=== PATIENT | female | born 1970 ===

== ENCOUNTER → 2022-08-08 15:17 | Outpatient (CLI) | payer BC, SELFPAY ==
--- NOTE | ~2022-08-08 | CT_ITS ---
EXAMINATION: CT soft tissue neck w con DATE: 08/08/2022 15:44 INDICATION: Right neck localized swelling. TECHNIQUE: Computed tomography (CT) of the neck was performed with 75 mL Omnipaque-350 intravenous co ntrast. Automated exposure control and iterative reconstruction technique were employed. The dose-dulce gth product was 409.19 mGy-cm. COMPARISON: None FINDINGS: There is an aberrant right subclavian artery. There are no pathologically enlarged lymph no shannon. The cervical carotid arteries are normal. The paranasal sinuses are clear. The mastoid air cells are normal. There is moderate thoracic spondylosis. IMPRESSION: 1. No abnormal neck mass or lymphadenopathy. Reviewed, dictated and finalized at location A.
== END ==
PROVIDERS: PCP Family Medicine; Visit Provider Family Medicine
DX: R22.1 Localized swelling, mass and lump, neck (principal)
CPT/HCPCS: 70491; Q9967